=== PATIENT | female | born 1985 | race Caucasian/White ===

== ENCOUNTER → 2016-11-21 | Outpatient (CLI) | payer MEDICAID | LOC: LAB 08:45 | PROVIDERS: ATTEND Psychiatry & Neurology Psychiatry | DX: Z79.899 Other long term (current) drug therapy (principal) | CPT/HCPCS: 36415; 80164 ==

== ENCOUNTER 2016-12-03 12:41 | Emergency (ER) | payer MEDICAID ==
[~2016-12-03] VITALS: Ht 172.7 cm; Wt 85.0 kg
[2016-12-03 14:03] LABS: BASOPHILS % (AUTO) 0 % (0-2); EOSINOPHILS # (AUTO) 0.1 10^3uL; EOSINOPHILS % (AUTO) 1 % (0-4); LYMPHOCYTES # (AUTO) 1.8 X10^3; MEAN CORPUSCULAR HEMOGLOBIN 29.2 PG (26.0-34.0); MEAN CORPUSCULAR VOLUME 92 FL (80-100); MEAN PLATELET VOLUME 8.8 FL (6.0-9.5); MONOCYTES # (AUTO) 0.9 X10^3; MONOCYTES % (AUTO) 11 % (3-11); NEUTROPHILS # (AUTO) 5.6 X10^3; NEUTROPHILS % (AUTO) 66 % (51-67); PLATELET COUNT 268 10^3uL (150-450)
[2016-12-03 14:09] LABS: MEAN CORPUSCULAR HGB CONC 31.6 g/dL (31.0-37.0)
--- NOTE | 2016-12-03 14:10 | NUR ---
Patient arrived to room 4 via personal wheelchair from a living facility at [id number]. patient is nonverbal and qustions and information was received from house staff.
[2016-12-03 14:17] LABS: ALBUMIN 3.5 g/dL (3.4-5.0); ANION GAP 12.5 MEQ/L (3-15); CALCULATED IONIZED CALCIUM 4.1 mg/dL (3.8-4.6); TOTAL PROTEIN 6.5 g/dL (6.4-8.5)
--- NOTE | 2016-12-03 15:10 | NUR ---
Patient DCd to home per physician order. Patient left ER via her personal wheelchair with facility staff atmher side.
[2016-12-03 15:22] VITALS: BP 106/50
== END 2016-12-03 15:24 | disposition home or self-care (01) ==
LOC: ED 12:42
DX: R11.2 Nausea with vomiting, unspecified (principal)
CPT/HCPCS: 36415; 71010; 74000; 80053; 83690; 85025; 99282; 99283

== ENCOUNTER 2017-01-20 17:03 | Emergency (ER) | payer MEDICAID ==
[~2017-01-20] VITALS: Ht 172.7 cm; Wt 40.9 kg
[2017-01-20] MEDS ORDERED: SODIUM CHLORIDE FLUSH 3 ML SYR IV ONE (17:30)
--- NOTE | 2017-01-20 18:29 | NUR ---
blood pressure is 88/52, iv attempt x 5 without success, orders to stop iv attempt for now
[2017-01-20] MEDS: SODIUM CHLORIDE FLUSH 10 ML SYR IV PRN ×2 (18:31→18:45)
[2017-01-20 19:00] LABS: MEAN CORPUSCULAR HEMOGLOBIN 28.7 PG (26.0-34.0); MEAN CORPUSCULAR HGB CONC 32.2 g/dL (31.0-37.0); MEAN CORPUSCULAR VOLUME 89 FL (80-100); MEAN PLATELET VOLUME 8.6 FL (6.0-9.5); PLATELET COUNT 358 10^3uL (150-450); WHITE BLOOD COUNT 15.12 10^3uL (4.0-11.0)
[2017-01-20 19:09] LABS: BAND NEUTROPHILS % 20 % (0-6); LYMPHOCYTES # 1.5 #; MONOCYTES # 2.3 #; MONOCYTES % 15 % (3-11); RBC MORPH NORMAL (NORMAL); SEGMENTED NEUTROPHILS % 55 % (51-67); TOTAL CELLS COUNTED 100
[2017-01-20 19:15] LABS: ALBUMIN 2.8 g/dL (3.4-5.0); ANION GAP 14.1 MEQ/L (3-15); TOTAL PROTEIN 6.1 g/dL (6.4-8.5)
[2017-01-20 20:14] LABS: BILIRUBIN,URINE 1+ (Negative); CLARITY,URINE Slightly Cloudy; COLOR,URINE Dark Yellow; GLUCOSE, URINE (UA) Negative (Negative); LEUKOCYTE ESTERASE ,URINE Negative (Negative); UROBILINOGEN,URINE >=8.0 mg/dL (0.2-1.0)
--- NOTE | 2017-01-20 20:39 | NUR ---
Vital Signs rechecked, resp are 32 pt does moan, pt's caregiver states that pt moans and that is her normal, she is non verbal.
--- NOTE | 2017-01-20 21:27 | NUR ---
Attempting to get an 02 sat on pt, her extremeties are very cool, and difficult to get saturation.
[2017-01-20] MEDS ORDERED: cefTRIAXone SODIUM 1,000 MG in SODIUM CHLORIDE 50 ML IV ONE (21:45)
--- NOTE | 2017-01-20 22:11 | NUR ---
Called to give report, nurse at [facility] [place] requested to call back in a few minutes to get report.
[2017-01-20 22:30] VITALS: BP 86/53
[2017-01-21 01:56] LABS: URINE CENTRIFUGED VOLUME 12 mL
[2017-01-21 02:03] LABS: RBC,URINE 0-2 /HPF
--- NOTE | 2017-01-21 07:46 | Diagnostic Imaging Report ---
INDICATION: Cough. Shortness of breath. Comparison with 12/03/2016. FINDINGS: There is rather severe S-type scoliosis. There has been development of consolidated infiltrate in the left lower lobe since previous exam. The right lung is clear. The heart is not enlarged. IMPRESSION: Development of left lower lobe pneumonia since previous exam. Dictated by: Dictated on workstation # [id number]
== END 2017-01-20 22:42 | disposition short-term general hospital (02) ==
LOC: ED 17:04
DX: J12.89 Other viral pneumonia (principal)
CPT/HCPCS: 36415; 71010; 80053; 81003; 81015; 83605; 85025; 86140; 87040; 87486; 87581; 87633; 87798; 96361; 96365; 99284; J0696; J7030

== ENCOUNTER → 2017-01-20 | Outpatient (CLI) | payer MEDICAID ==
[~2017-01-20] MED LIST: ACET-2264 PO; AMOX-358 PO; AMOX1TAB12 PO; BISA10SU6 PR; BUSP10TA95 PO; CHOL400T26 PO; CLIN-79 PO; DIVA125C PO; DVL125C PO; FAMO-119 PO; FLUT16SP NS; GFN600TCR PO; HYDROXYSUT; IPRA3AMP11 NEB; LANS30CA14 PO; LEVO750T76 PO; LORA-404 PO; LORA-44 PO; LORA0.5T PO; LORA10CA PO; LORA1TAB PO; MIRALAX 17 GM P17 GM PO; MIRT30TA6 PO; MUPI22OI TP; NF-FLON16G NSEACH; OLN2.5T PO; OLN5T PO; OMEP20CA12; OMEP20CA6 PO; PRED10TA PO; QTP100T PO; QTP25T PO; QUET50TA21 PO; SENN-1 PO; SERT100T8 PO; SERT25TA PO; SUCR1TAB29 PO; SULF-228 PO; TRAZ-28 PO; [UNRECOGNIZED DRUG - CODE] PO; [UNRECOGNIZED DRUG - CODE] PO
== END ==
LOC: EMS 22:47
PROVIDERS: ATTEND Hospitalist
DX: J18.9 Pneumonia, unspecified organism (principal)